=== PATIENT | female | born 1995 | race Caucasian/White ===

== ENCOUNTER 2021-01-06 20:30 | Inpatient (IN) ==
[2021-01-06] MEDS ORDERED: LACTATED RINGERS 1,000 ML IV PRN (21:17)
[2021-01-06] MEDS ORDERED: ONDANSETRON 4 MG/2 ML VIAL IV PRN (21:17)
[2021-01-06] MEDS ORDERED: MEPERIDINE 50 MG/1 ML VIAL IV PRN (21:17)
[2021-01-06] MEDS ORDERED: LACTATED RINGERS 500 ML IV PRN (21:17)
[2021-01-06] MEDS ORDERED: BUTORPHANOL 2 MG/ML VIAL IV PRN (21:17)
[2021-01-06 21:45] LABS: Basophils % 0.2 % (0.0-0.8); Eosinophils # 0.1 10*3/uL (0.0-0.87); Eosinophils % 1.3 % (0.00-10.9); Hematocrit 28.8 VOL% (35.7-47.0); Hemoglobin 9.2 GM/DL (12.0-16.0); Immature Granulocytes % 3.6 %; Immature Granulocytes Absolute 0.31 #; Lymphocytes # 1.6 10*3/uL (1.4-4.0); Lymphocytes % 18.1 % (21.3-54.2); Mean Corpuscular HGB Conc 31.9 GM/DL (32-36); Mean Corpuscular Volume 83.2 FL (87-102); Mean Platelet Volume 11.9 FL (9.6-12.0); Monocytes % 9.8 % (1.7-12.7); Platelet Count 243 T/CUMM (130-400); Red Blood Count 3.46 MC/CUMM (3.8-5.5); Red Cell Distribution Width 13.4 % (9.3-17.3); White Blood Count 8.6 T/CUMM (4-12)
[2021-01-06 22:08] LABS: Alanine Aminotransferase 20 U/L (13-56); Albumin 2.8 G/DL (3.4-5.0); Alkaline Phosphatase 144 U/L (45-117); Aspartate Amino Transferase 17 U/L (0-37); Bilirubin,Total < 0.39 MG/DL (0.20-1.00); Blood Urea Nitrogen 6 MG/DL (7-18); Calcium 8.9 MG/DL (8.5-10.1); Carbon Dioxide 24 MMOL/L (21-32); Estimated Glom Filtration Rate 138 ML/MIN; Glucose 87 MG/DL (74-106); Osmolality,Calculated 273.5 MOS/KG (273-304); Potassium 3.4 MMOL/L (3.5-5.1); Sodium 139 MMOL/L (136-145)
[2021-01-07] MEDS ORDERED: ePHEDrine 50 MG/ML VIAL IV PRN (06:35)
[2021-01-07] MEDS ORDERED: LACTATED RINGERS 1,000 ML IV ONE (06:35)
[2021-01-07] MEDS ORDERED: diphenhydrAMINE 50 MG/1 ML VIAL IV PRN (06:35)
[2021-01-07] MEDS ORDERED: PROMETHAZINE 25 MG/1 ML VIAL IM PRN (06:35)
[2021-01-07] MEDS ORDERED: CITRIC ACID/SODIUM CITRATE 30 ML UDCUP PO ONE (06:35)
[2021-01-07] MEDS ORDERED: FAMOTIDINE 20 MG/2 ML VIAL IV ONE (06:35)
[2021-01-07] MEDS ORDERED: hydrOXYzine HCL 25 MG/1 ML VIAL IM PRN (06:35)
[2021-01-07] MEDS ORDERED: ONDANSETRON 4 MG/2 ML VIAL IV ONE (06:35)
[2021-01-07] MEDS ORDERED: NALOXONE 0.4 MG/ML VIAL IV PRN (06:35)
[2021-01-07] MEDS ORDERED: fentaNYL 2 MCG/ROPIV 0.2% EPID 100 ML EPIDURAL SCH (07:00)
[2021-01-07] MEDS ORDERED: OXYTOCIN/LR 20 UNIT/1,000 ML BAG IV SCH (07:30)
[2021-01-07 08:40] LABS: Bacteria,Urine Occasional /HPF (Few); Bilirubin,Urine Negative (Negative); Blood, Urine Negative (Negative); Glucose,Urine (UA) Negative (Negative); Hyaline Casts,Urine 1 /LPF (0-3); Ketones,Urine Negative (Negative); Nitrite,Urine Negative (Negative); Protein,Urine Negative; RBC,Urine 1 /HPF (0-4); Squamous Epithelial Cell,Urine Occasional /HPF (0-10); Urine Appearance CLEAR (Clear); Urine Color Straw (Yellow); Urine Specific Gravity 1.006 (1.001-1.035); Urine Urobilinogen < 2.0 EU/DL (0.2-1.0)
[2021-01-07] MEDS ORDERED: TERBUTALINE 1 MG/1 ML VIAL SUBCUT ONE (10:04)
[2021-01-07] MEDS ORDERED: ceFAZolin 2,000 MG/50 ML DUPLEX IV ONE (10:14)
[2021-01-07] MEDS ORDERED: miSOPROStoL 200 MCG TABLET ONE (10:31)
[2021-01-07] MEDS ORDERED: CARBOPROST TROMETHAMINE 250 MCG/ML AMP IM ONE (10:32)
[2021-01-07] MEDS ORDERED: METHYLERGONOVINE 0.2 MG/1 ML AMP ONE (10:32)
[2021-01-07] MEDS ORDERED: KETOROLAC 30 MG/1 ML VIAL ONE (11:12)
[2021-01-07] MEDS ORDERED: ONDANSETRON 4 MG/2 ML VIAL ONE ×2 (11:12→11:40)
[2021-01-07] MEDS ORDERED: LIDOCAINE MPF 2% /EPI 20 ML VIAL ONE (11:12)
[2021-01-07 11:54] LABS: Cord Arterial Blood HCO3 19.7 MMOL/L
[2021-01-07 11:57] LABS: Cord Venous Blood PCO2 49.6 MMHG; Cord Venous Blood PO2 24.6 MMHG
[2021-01-07] MEDS ORDERED: HYDROmorphone 2 MG/1 ML VIAL IV PRN (12:23)
[2021-01-07] MEDS ORDERED: OXYTOCIN/LR 20 UNIT/1,000 ML BAG IV ONE (12:40)
[2021-01-07] MEDS ORDERED: BENZOCAINE 20%/MENTHOL 0.5% SPRAY 56 GM CAN TOP PRN (12:40)
[2021-01-07] MEDS ORDERED: ONDANSETRON 4 MG/2 ML VIAL IV PRN (12:40)
[2021-01-07] MEDS ORDERED: oxyCODONE/ACETAMINOPHEN 5-325 MG TABLET PO PRN (12:40)
[2021-01-07] MEDS ORDERED: LANOLIN 50% CREAM 0.3 OZ TUBE TOP PRN (12:40)
[2021-01-07] MEDS ORDERED: DIPH/TET/ACEL PERT BOOSTER VACCINE 0.5 ML VIAL IM ONE (12:40)
[2021-01-07] MEDS ORDERED: MEASLES/MUMPS/RUBELLA VACCINE 0.5 ML VIAL SUBCUT ONE (12:40)
[2021-01-07] MEDS ORDERED: WITCH HAZEL PADS 100/JAR TOP PRN (12:40)
[2021-01-07] MEDS ORDERED: HYDROCORTISONE 2.5% RECTAL CREAM 30 GM TUBE TOP PRN (12:40)
[2021-01-07] MEDS ORDERED: BISACODYL 10 MG SUPP RECTAL PRN (12:40)
[2021-01-07] MEDS ORDERED: ACETAMINOPHEN 325 MG TABLET PO PRN (12:40)
[2021-01-07] MEDS ORDERED: RHO(D) IMMUNE GLOBULIN 300 MCG SYRINGE IM ONE (12:40)
[2021-01-07] MEDS: ACETAMINOPHEN 500 MG TABLET PO SCH ×2 (17:19→17:49)
[2021-01-07] MEDS: KETOROLAC 30 MG/1 ML VIAL IV SCH ×2 (17:48→23:31)
[2021-01-07] MEDS: POTASSIUM CHLORIDE 20 MEQ TABLET PO PRN ×2 (17:49→23:42)
[2021-01-08] MEDS: DOCUSATE SODIUM 100 MG CAPSULE PO SCH ×3 (02:07→21:13)
[2021-01-08] MEDS: MULTIVITAMIN (PRENATAL) TABLET PO SCH (02:08)
[2021-01-08] MEDS: KETOROLAC 30 MG/1 ML VIAL IV SCH (05:12)
[2021-01-08 05:13] LABS: Basophils % 0.4 % (0.0-0.8); Eosinophils # 0.1 10*3/uL (0.0-0.87); Hematocrit 21.6 VOL% (35.7-47.0); Immature Granulocytes % 1.3 %; Immature Granulocytes Absolute 0.13 #; Lymphocytes # 1.4 10*3/uL (1.4-4.0); Lymphocytes % 14.1 % (21.3-54.2); Mean Corpuscular HGB Conc 32.4 GM/DL (32-36); Mean Corpuscular Volume 83.1 FL (87-102); Mean Platelet Volume 12.2 FL (9.6-12.0); Neutrophils % 75.2 % (38.7-73.9); Platelet Count 145 T/CUMM (130-400); Red Cell Distribution Width 13.5 % (9.3-17.3)
[2021-01-08] MEDS: ACETAMINOPHEN 500 MG TABLET PO SCH ×2 (05:18→07:36)
[2021-01-08 05:43] LABS: Alanine Aminotransferase 11 U/L (13-56); Albumin 1.9 G/DL (3.4-5.0); Alkaline Phosphatase 102 U/L (45-117); Aspartate Amino Transferase 25 U/L (0-37); Bilirubin,Total < 0.39 MG/DL (0.20-1.00); Blood Urea Nitrogen 5 MG/DL (7-18); Calcium 8.4 MG/DL (8.5-10.1); Carbon Dioxide 26 MMOL/L (21-32); Estimated Glom Filtration Rate 149 ML/MIN; Glucose 79 MG/DL (74-106); Potassium 3.8 MMOL/L (3.5-5.1); Sodium 136 MMOL/L (136-145)
[2021-01-08] MEDS: FERROUS SULFATE 325 MG TABLET PO SCH ×2 (08:24→21:13)
[2021-01-08] MEDS: IBUPROFEN 800 MG TABLET PO PRN (12:57)
[2021-01-08] MEDS: oxyCODONE/ACETAMINOPHEN 5-325 MG TABLET PO PRN (21:14)
[2021-01-08] MEDS: MAGNESIUM HYDROXIDE SUSP 30 ML UDCUP PO PRN (21:55)
[2021-01-09] MEDS: IBUPROFEN 800 MG TABLET PO PRN (04:32)
[2021-01-09] MEDS: oxyCODONE/ACETAMINOPHEN 5-325 MG TABLET PO PRN (06:12)
[2021-01-09 08:51] VITALS: BP 119/50
[2021-01-09] MEDS: MULTIVITAMIN (PRENATAL) TABLET PO SCH (09:17)
[2021-01-09] MEDS: FERROUS SULFATE 325 MG TABLET PO SCH (09:17)
[2021-01-09] MEDS: DOCUSATE SODIUM 100 MG CAPSULE PO SCH (09:17)
[2021-01-09] MEDS: MAGNESIUM HYDROXIDE SUSP 30 ML UDCUP PO PRN (09:18)
== END 2021-01-09 12:05 | disposition home or self-care (01) | DRG 788 ==
LOC: N.LDOUT 20:30 → N.LD 20:31 → N.OB 01-07 15:51
PROVIDERS: ADMIT Specialist; ATTEND Specialist
PROC: LDCSECT (ICD-10-PCS; 2021-01-07 11:00)